=== PATIENT | male | born 1965 | race Caucasian/White ===

== ENCOUNTER 2017-04-30 10:11 | Emergency (ER) | payer OTHER ==
[~2017-04-30] VITALS: Ht 170.2 cm; Wt 75.0 kg
[~2017-04-30 10:11] MED LIST: Z.0.NO CURRENT MEDS
[2017-04-30 10:12] VITALS: BP 128/82; PULSE 83; RESP 16; TEMP 98.4; O2SAT 98
[2017-04-30] MEDS ORDERED: DEPA500T3 PO (10:24)
[2017-04-30] MEDS ORDERED: SERO100T PO (10:24)
--- NOTE | 2017-04-30 10:26 | PD ---
HPI Chief Complaint: Injury Time Seen by Provider: 10:20 Travel History International Travel<30 days: No Contact w/Intl Traveler<30days: No Traveled to known affect area: No History of Present Illness HPI [id number] male presents for evaluation of right hand injury. He reports that 4 days ago he was swinging a sledgehammer with his left hand while holding a crowbar with his right hand. He actually hit his right hand with the sledgehammer. Since then he has had persistent pain and swelling the right hand , throbbing, constant, worse with movement, unrelieved with the use of over-the- counter aspirin. His last tetanus vaccination was 7 years ago. He denies any other injuries and he has no other complaints at this time. PFSH Past Medical History Blood Disorders: Yes (DVT/PE) Bipolar Disorder: Yes Cardiovascular Problems: Yes (HX OF PE IN 1985) Hepatitis: Yes Immunizations Current: Yes Migraines: Yes Seizures: Yes Past Surgical History Genitourinary Surgery: Yes (HERNIA) Social History Alcohol Use: Yes (RARELY) Tobacco Use: Yes (1 PK A DAY) Substance Use: Yes (MARIJUANA LAST WEEK) Allergies-Medications (Allergen,Severity, Reaction): Coded Allergies: No Known Allergies (Verified Adverse Reaction, Unknown, 04/30/17) Reported Meds & Prescriptions Reported Meds & Active Scripts Active Keflex (Cephalexin) 500 Mg Cap 500 Mg PO Q8H Bactrim DS (Sulfamethoxazole-Trimethoprim) 800-160 Mg Tab 1 Tab PO BID Reported Depakote ER (Divalproex Sodium) 500 Mg Tavia 500 Mg PO DAILY Seroquel (Quetiapine Fumarate) 100 Mg Tab 150 Mg PO HS Review of Systems General / Constitutional: No: Fever, Chills Musculoskeletal: Positive: Limited ROM, Pain Skin: Positive Other (positive for abrasions, swelling) Physical Exam Narrative GENERAL: Well-developed well-nourished male in no acute distress SKIN: Warm and dry. There is some generalized soft tissue swelling to the dorsum of the right hand and fingers. Some abrasions are noted to the dorsum of the right hand and fingers as well. CARDIOVASCULAR: Regular rate and rhythm. No murmur appreciated. RESPIRATORY: No accessory muscle use. Clear to auscultation. Breath sounds equal bilaterally. MUSCULOSKELETAL: Skin as noted above. Generalized tenderness to palpation of the right hand. The patient maintains full range of motion of the fingers and the right hand over there is pain with range of motion activities. Capillary refill is less than 2 seconds all digits of the right hand. 2+ radial pulse. Distal sensation is preserved. Data Data Last Documented VS Vital Signs Date Time Temp Pulse Resp B/P (MAP) Pulse Ox O2 Delivery O2 Flow Rate FiO2 04/30/17 10:12 98.4 83 16 128/82 (97) 98 Orders Orders Hand, Complete ([id number]) (04/30/17 ) Ice/Cold Pack (04/30/17 10:23) Tetanus/Diphtheria Tox Adult (Tetanus/Di (04/30/17 10:30) Ed Discharge Order (04/30/17 11:11) [facility] Medical Decision Making Medical Screen Exam Complete: Yes Emergency Medical Condition: Yes Medical Record Reviewed: Yes Differential Diagnosis Contusion, cellulitis, hematoma, fracture Narrative Course X-ray imaging of the right hand will be obtained. Ice pack provided. Tetanus status updated. X-ray imaging reveals soft tissue swelling with no acute bony abnormality. I'm concerned that the patient have developed early cellulitic changes on the dorsum of his right hand. He will be discharged with Bactrim and Keflex. Discussed signs and symptoms out a large returning to the emergency room. Diagnosis Primary Impression: Contusion of right hand Additional Impression: Cellulitis of right hand Patient Instructions: Cellulitis (ED), Contusion in Adults (ED), General Instructions Additional Instructions: Medication as prescribed. Take Tylenol or Motrin for pain. Follow-up in 3-4 days with primary care physician. Return for any emergent medical conditions. Med/Other Pt SpecificInfo: Prescription(s) given Scripts Cephalexin (Keflex) 500 Mg Cap 500 MG PO Q8H for Infection, #30 CAP 0 Refills Prov: Ruddy Martin MD 04/30/17 Sulfamethoxazole-Trimethoprim (Bactrim DS) 800-160 Mg Tab 1 TAB PO BID for Infection, #20 TAB 0 Refills Prov: Ruddy Martin MD 04/30/17 Disposition: 01 DISCHARGE HOME Condition: Stable Ricardo Iglesias Apr 30, 2017 10:26
[2017-04-30] MEDS ORDERED: TETANUS/DIPHTHERIA TOXOID ADULT 0.5 ML VIAL IM ONE (10:30)
--- NOTE | 2017-04-30 11:06 | RADRPT ---
EXAM DATE/TIME: 04/30/2017 10:48 [facility] COMPARISON: No previous studies available for comparison. INDICATIONS : Accidentally hit right hand with a hammer twice 3 days ago, entire hand appears swollen, pain across all metacarpals MEDICAL HISTORY : states broken right wrist 8 times SURGICAL HISTORY : None. ENCOUNTER: Initial ACUITY: 3 days PAIN SCORE: 10/10 LOCATION: Right hand FINDINGS: The exam demonstrates soft tissue swelling along the dorsal aspect of the hand and the thenar eminenc e. The osseous structures of the hand are intact. CONCLUSION: 1. No acute bony abnormality identified. There is soft tissue swelling along the thenar eminence and dorsal aspect of the hand. Gael Yoo MD on April 30, 2017 at 11:04 Board Certified Radiologist. This report was verified electronically.
[2017-04-30] MEDS ORDERED: CEPH-460 PO (11:10)
[2017-04-30] MEDS ORDERED: BACT800T5 PO (11:10)
== END 2017-04-30 11:58 | disposition home or self-care (01) ==
LOC: NEPK 10:11
DX: S60.221A Contusion of right hand, initial encounter (principal); L03.113 Cellulitis of right upper limb; M79.89 Other specified soft tissue disorders; W20.8XXA Other cause of strike by thrown, projected or falling object, initial encounter; Y93.89 Activity, other specified; Z23 Encounter for immunization; Z72.0 Tobacco use
CPT/HCPCS: 73130; 90471; 90714

== ENCOUNTER 2017-05-10 17:38 | Emergency (ER) | payer SELFPAY ==
[~2017-05-10] VITALS: Ht 170.2 cm; Wt 76.0 kg
[~2017-05-10 17:38] MED LIST changes: +BACT800T5 PO; +CEPH-460 PO; +DEPA500T3 PO; +SERO100T PO; -Z.0.NO CURRENT MEDS
[2017-05-10 18:07] VITALS: BP 131/81; PULSE 82; RESP 16; TEMP 98.7; O2SAT 98
--- NOTE | 2017-05-10 19:36 | PD ---
HPI Chief Complaint: Laceration/Skin Injury Time Seen by Provider: 18:19 Travel History International Travel<30 days: No Contact w/Intl Traveler<30days: No Traveled to known affect area: No History of Present Illness HPI 51 year-old male presents to the emergency room for evaluation of a laceration to his right medial forearm. 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 He immediately poured alcohol on the wound and then his friend dressed it. Patient denies loss of range of motion. Reports moderate pain. Pain is worsened when he touches it. Minimal bleeding. He had a tetanus vaccination 2 weeks ago. PFSH Past Medical History Blood Disorders: Yes (DVT/PE) Bipolar Disorder: Yes Cardiovascular Problems: Yes (HX OF PE IN 1985) Hepatitis: Yes Immunizations Current: Yes Migraines: Yes Seizures: Yes Tetanus Vaccination: < 5 Years Past Surgical History Genitourinary Surgery: Yes (HERNIA) Social History Alcohol Use: Yes (RARELY) Tobacco Use: Yes (1 PK A DAY) Substance Use: Yes (MARIJUANA LAST WEEK) Allergies-Medications (Allergen,Severity, Reaction): Coded Allergies: No Known Allergies (Verified Adverse Reaction, Unknown, 05/10/17) Reported Meds & Prescriptions Reported Meds & Active Scripts Active Keflex (Cephalexin) 500 Mg Cap 500 Mg PO Q8H Bactrim DS (Sulfamethoxazole-Trimethoprim) 800-160 Mg Tab 1 Tab PO BID Reported Depakote ER (Divalproex Sodium) 500 Mg Tavia 500 Mg PO DAILY Seroquel (Quetiapine Fumarate) 100 Mg Tab 150 Mg PO HS Review of Systems Except as stated in HPI: all other systems reviewed are Neg Physical Exam Narrative GENERAL: Well-nourished, well-developed male in no acute distress. Afebrile. Ambulatory. SKIN: Focused skin assessment warm/dry. There is a 15 cm gaping laceration to the right medial forearm extending. The laceration extends through the dermis but not through the fascia. No tendon involvement or disruption HEAD: Normocephalic. EYES: No scleral icterus. No injection or drainage. NECK: Supple, trachea midline. No JVD or lymphadenopathy. CARDIOVASCULAR: Regular rate and rhythm without murmurs, gallops, or rubs. RESPIRATORY: Breath sounds equal bilaterally. No accessory muscle use. MUSCULOSKELETAL: No cyanosis, or edema. Full range of motion of the right upper extremity. 2+ radial pulse. Data Data Last Documented VS Vital Signs Date Time Temp Pulse Resp B/P (MAP) Pulse Ox O2 Delivery O2 Flow Rate FiO2 05/10/17 18:07 98.7 82 16 131/81 (98) 98 MDM Medical Decision Making Medical Screen Exam Complete: Yes Emergency Medical Condition: Yes Medical Record Reviewed: Yes Differential Diagnosis Skin tear, laceration, foreign body, contusion, abrasion Narrative Course 51-year-old male presents to the emergency room for evaluation of a laceration to his right medial forearm that occurred just prior to arrival. Patient cut himself on ceramic tile. Tetanus is up-to-date. There is a 15 cm gaping laceration to the right medial forearm. The laceration extends through the dermis but not through the fascia. No neurovascular or tendon injury. Patient has full range motion the right upper extremity and 2+ radial pulse. It was thoroughly cleansed and then repaired, see procedure note for details. Patient discharged with wound care instructions and told to return immediately for any signs of infection. He understands and agrees to plan. Procedures Procedure Narrative LACERATION LOCATION: Right medial forearm LENGTH: 15 cm NUMBER OF STITCHES/AASHISH: 19 aashish REPAIR: The area of the laceration was prepped with Betadine and sterilely draped. The laceration was infiltrated with 1% lidocaine with epinephrine. The wound was copiously irrigated and explored without evidence of foreign body , tendon injury or neurovascular injury. The wound was closed using staple gun. This was a single layer repair. A sterile dressing was applied. The patient was advised to keep the dressing clean and dry. Patient tolerated the procedure well. Diagnosis Primary Impression: Laceration of right upper arm Qualified Codes: S41.111A - Laceration without foreign body of right upper arm , initial encounter Referrals: Primary Care Physician Additional Instructions: Rest and drink fluids. Keep wound clean and dry. Apply triple antibiotic ointment daily. Return in 14 days to have sutures removed. Follow-up with a primary care physician. Return to the emergency room for worsening symptoms such as redness around the wound, worsening pain, and/or drainage. Med/Other Pt SpecificInfo: Prescription(s) given Disposition: DISCHARGE HOME Condition: Stable Sunita Millan May 10, 2017 19:36
== END 2017-05-10 20:00 | disposition home or self-care (01) ==
LOC: NEPK 17:38
DX: S51.811A Laceration without foreign body of right forearm, initial encounter (principal); W26.8XXA Contact with other sharp object(s), not elsewhere classified, initial encounter; Y93.H3 Activity, building and construction
CPT/HCPCS: 12005